=== PATIENT | female | born 1975 | race Caucasian/White ===

== ENCOUNTER 2020-10-03 00:26 | Day surgery (SDC) | payer OTHER, SELFPAY ==
[2020-09-24 09:34] VITALS: BMI 38.6
--- NOTE | 2020-10-01 07:06 | PM.HPGS ---
History of Present Illness History of Present Illness Consent: Risks, benefits, and alternatives have been discussed and questions answered. Patient agrees to proceed with procedure. Chief complaint: left chronic otitis media Narrative: Zohra Durand is a 45 year old female persistent left otitis unresponsive medical management Review of Systems Review of Systems: All systems reviewed & are unremarkable except as noted in HPI and below PMFSH Social History Social History Smoking status: Never smoker Alcohol intake: current Drinks per week: 2 Substance use: never Living arrangements: with family Meds Home Medications and Allergies Home Medications Medication Instructions Recorded Confirmed Type bupropion HCl 150 mg 24 hr tablet, 150 mg PO QAM 09/09/20 09/24/20 History extended release naltrexone 12.5 mg PO DAILY 09/24/20 09/24/20 History Allergies Allergy/AdvReac Type Severity Reaction Status Date / Time No Known Allergies Allergy Unknown Verified 09/24/20 09:30 Exam Narrative: Exam Narrative: chest clear heart without murmurs abdomen soft left tympanic membrane retracted with Assessment and Plan Additional Plan plan left myringotomy into
--- NOTE | 2020-10-02 10:03 | WPDANESEPPF ---
Anes - Initial Pre Proc Eval Procedure: Operation Date: 10/03/20 08:00 Proposed Procedures p Left Myringotomy,Insertion Of T-Tube - Gama Caldera MD Date/Time: 10/02/20 10:03 Surgeon: Gama Caldera MD Pre Op Diagnosis: left chronic otitis media Patient Data Age: 45 Gender: F Height: 1.63 m Weight: 102 kg Allergies Allergy/AdvReac Type Severity Reaction Status Date / Time No Known Allergies Allergy Unknown Verified 10/03/20 06:46 Home Medications Medication Instructions Recorded Confirmed Type bupropion HCl 150 mg 24 hr tablet, 150 mg PO QAM 09/09/20 10/03/20 History extended release naltrexone 12.5 mg PO DAILY 09/24/20 10/03/20 History Patient hx anesthesia problems: none Family hx anesthesia problems: none [facility] Social History Social History Smoking status: Never smoker Alcohol intake: current Drinks per week: 2 Alcohol use details: Occasionally Substance use: never Living arrangements: with family Anes - Eval Final PreProcedure Day of Procedure 10/02/20 10:03 Patient weight: obese Heart: regular rate and rhythm Lungs: clear to auscultation and normal air movement Airway: Mallampati scale class II Neurological: alert and oriented Last oral intake: >/= 8 hours ASA classification: II Emergent: no Anesthetic plan: proceed Anesthesia type and monitoring: general GIVS and standard monitoring Informed Consent: The patient's anesthetic plan and its attendant risks and benefits were discussed with the patient/family/POA. Questions were solicited and answers provided to the satisfaction of the patient/family/POA.
[2020-10-03] VITALS (7 sets, daily range): BP systolic 110–142; BP diastolic 69–94; PULSE 57–65; RESP 16–18; TEMP 35.8–36.1; O2SAT 96–100; BMI 37.8
--- NOTE | 2020-10-03 06:14 | WPDHPUPDATE1 ---
History and Physical Update Update Date/Time: 10/03/20 06:14 History and Physical has been reviewed, including an updated exam of the patient. There are NO changes in the patient's condition. Risks, benefits, and alternatives have been discussed and questions answered. Patient agrees to proceed with procedure.
[2020-10-03] MEDS: LACTATED RINGERS 1,000 ML 30 ML IV CONT (07:02)
--- NOTE | 2020-10-03 08:03 | W.PM.PROC2 ---
Procedure Note - Detailed Date of Procedure 10/03/20 Pre-op Diagnosis left chronic otitis media Post-op Diagnosis same Procedure Performed left myringotomy with insertion of T-tube Surgeon Gama Caldera MD Anesthesia general Indications left chronic otitis Description of Procedure patient was prepped and draped in usual fashion general anesthesia the left ear was inspected and anterosuperior incision was made and a long-lasting T-tube was inserted patient awakened returned to recovery in good condition Estimated Blood Loss 0 Complications No immediate complications Condition stable Disposition same day
[2020-10-03] MEDS: CIPROFLOXACIN HCL 0.3% OP SOLN 2.5 ML BTL 4 DROP LEFT EAR (08:27)
[2020-10-03] MEDS: ACETAMINOPHEN 325 MG TABLET 650 MG PO (09:11)
== END 2020-10-03 09:27 | disposition home or self-care (01) ==
PROVIDERS: PCP Family Medicine; Visit Provider Otolaryngology
PROC: (CPT 69436; principal; 2020-10-03 08:00)
DX: H66.92 Otitis media, unspecified, left ear (principal); E66.9 Obesity, unspecified; Z68.37 Body mass index [BMI] 37.0-37.9, adult
CPT/HCPCS: 69436; A9270; J2250; J3010; J7120

== ENCOUNTER 2021-07-04 10:29 | Outpatient (CLI) | payer OTHER, SELFPAY | END 2021-07-04 10:30 | disposition home or self-care (01) | LOC: ANHAUDIO 10:30 | PROVIDERS: PCP Family Medicine; Visit Provider Otolaryngology | DX: H66.93 Otitis media, unspecified, bilateral (principal); H90.11 Conductive hearing loss, unilateral, right ear, with unrestricted hearing on the contralateral side | CPT/HCPCS: 92557; 92567 ==

== ENCOUNTER 2021-07-15 00:11 | Day surgery (SDC) | payer OTHER, SELFPAY ==
[2021-07-08 13:38] VITALS: BMI 36.9
--- NOTE | 2021-07-08 13:40 | SUR.PREOP ---
Report to the Outpatient Waiting Room, entrance under the green pavilion located off [facility], at time _0630 on date 07/15/21 . OR Time: __0830. - You and your visitor will be asked a series of questions to screen for COVID 19 for your protection. - A mask is required within the hospital. Preoperative COVID Testing Requirements: No COVID Test needed if: (proof is required; if not received patient will have Rapid Test prior to entry) - Patient has received COVID Vaccine at least 14 days prior to procedure date or - Patient has positive COVID test result within last 90 days of surgery date. COVID Test needed if above criteria is not met If not COVID vaccinated a COVID test must be conducted within 72 hours of surgery and patient is asked to isolate self from time of testing until procedure. You will go to the [facility] for your COVID testing. The [facility] site is located at the corner of [address] [facility]. You will only be called if COVID results are positive and your surgeon may reschedule your elective surgery date. Patients may have clear liquids (water, carbonated beverages, clear teas, apple juice) until 3 hours prior to surgery with a maximum of 20 ounces. - No food from midnight until time of surgery - Infants may have breast milk until 4 hours before surgery, formula 6 hours prior to surgery. - Children will be allowed to drink immediately following surgery. If applicable, please bring a bottle or sippy cup to assist with drinking. Juice, water, soda, and popsicles are readily available. For infants on formula, please bring formula the day of surgery. Pacifiers are allowed. Take the following medications with a SIP of water the morning of surgery: n/a Medications to discontinue per physician _vitamin supplements Date to take last dose__07/12/21 Please no make-up, nail colombian, hairspray, perfume, deodorant, or body powder the day of surgery. No jewelry (including any body piercings) or valuables the day of surgery, leave them at home. Please take a shower or bath the night before, or the morning of, surgery with an antibacterial soap. Wear comfortable, loose fitting clothing. Children are encouraged to wear pajamas. - Jewelry must be removed prior to entering the operating room. Rings and piercings that are not removed may be cut off. - The hospital will not accept responsibility for valuables. - Please leave all valuables, including medications, at home the day of surgery. If you are going home after surgery, a licensed freight delivery driver must drive you home. - NO public transportation without another adult. - We recommend that an adult stay with you for 24 hours following discharge. - We also recommend that you do not drive, make important decision, drink alcoholic beverages, or take any drugs that were not prescribed by your health care provider for at least 24 hours after your discharge time. For Pediatric surgeries, we recommend two adults accompany the child home (only one inside the building at this time). One visitor will be allowed to accompany the patient into the hospital. Patients visitor will be instructed to remain with patient at all times or leave the building. We will allow the visitor to come back to the postoperative area when patient is ready. Follow any additional instructions given to you from your surgeon. Telephone instructions given to _reina burgos and asked if any additional questions and then verbalized understanding. Patient advised to call surgeon office or pre surgery nurse liaison [phone] if any additional questions.
--- NOTE | 2021-07-09 09:50 | PM.HPGS ---
History of Present Illness History of Present Illness Consent: Risks, benefits, and alternatives have been discussed and questions answered. Patient agrees to proceed with procedure. Chief complaint: Lt TM perforation Narrative: Zohra Durand is a 45 year old female and had tubes in the past she needs a left tympanoplasty placement of a tube at the same time [facility] Social History Social History Smoking status: Never smoker Alcohol intake: current Drinks per week: 2 Alcohol use details: Occasionally Substance use: never Spiritual care concerns: No Meds Home Medications and Allergies Home Medications Medication Instructions Recorded Confirmed Type ergocalciferol (vitamin D2) 1,000 unit PO DAILY 07/08/21 07/08/21 History [Vitamin D2] multivitamin 1 cap PO DAILY 07/08/21 07/08/21 History Allergies Allergy/AdvReac Type Severity Reaction Status Date / Time No Known Allergies Allergy Unknown Verified 07/08/21 13:24 Exam Narrative: chest clear heart murmurs abdomen soft extremities negative left TM retracted with perfect Assessment and Plan Additional Plan plan left tympanoplasty with a placement of the tube with the same time
[2021-07-15] VITALS (7 sets, daily range): BP systolic 110–132; BP diastolic 72–91; PULSE 56–71; RESP 13–19; TEMP 36.3–36.6; O2SAT 96–100
--- NOTE | 2021-07-15 06:16 | WPDHPUPDATE1 ---
History and Physical Update Update Date/Time: 07/15/21 06:16 History and Physical has been reviewed, including an updated exam of the patient. There are NO changes in the patient's condition. Risks, benefits, and alternatives have been discussed and questions answered. Patient agrees to proceed with procedure.
--- NOTE | 2021-07-15 07:22 | WPDANESEPPF ---
Anes - Initial Pre Proc Eval Procedure: Operation Date: 07/15/21 09:00 Proposed Procedures p Left Tympanoplasty - Gama Caldera MD s Left Myringotomy with Tube Insertion - Gama Caldera MD Date/Time: 07/15/21 07:22 Surgeon: Gama Caldera MD Pre Op Diagnosis: Lt TM perforation Patient Data Age: 45 Gender: F Height: 1.63 m Weight: 100 kg Allergies Allergy/AdvReac Type Severity Reaction Status Date / Time No Known Allergies Allergy Unknown Verified 07/15/21 07:10 Home Medications Medication Instructions Recorded Confirmed Type ergocalciferol (vitamin D2) 1,000 unit PO DAILY 07/08/21 07/15/21 History [Vitamin D2] multivitamin 1 cap PO DAILY 07/08/21 07/15/21 History Patient hx anesthesia problems: none Family hx anesthesia problems: none Results Review: All pre-operative results and documents have been reviewed as part of the pre-operative evaluation. [facility] Surgical History Surgical History (Updated 07/14/21 @ 15:38 by Chalino Slade DO) History of tubal ligation Social History Social History Smoking status: Never smoker Alcohol intake: current Drinks per week: 2 Alcohol use details: Occasionally Substance use: never Living arrangements: with family Spiritual care concerns: No Anes - Eval Final PreProcedure Day of Procedure 07/15/21 07:22 Patient weight: obese Heart: regular rate and rhythm Lungs: clear to auscultation and normal air movement Airway: Mallampati scale class II Neurological: alert and oriented Last oral intake: >/= 8 hours ASA classification: II Emergent: no Anesthetic plan: proceed Anesthesia type and monitoring: general LMA and standard monitoring Results Review: All pre-operative results and documents have been reviewed as part of the pre-operative evaluation. Informed Consent: The patient's anesthetic plan and its attendant risks and benefits were discussed with the patient/family/POA. Questions were solicited and answers provided to the satisfaction of the patient/family/POA.
[2021-07-15] MEDS: LACTATED RINGERS 1,000 ML 30 ML IV CONT (07:42)
[2021-07-15] MEDS: CIPROFLOXACIN HCL 0.3% OP SOLN 2.5 ML BTL 4 DROP LEFT EAR (09:07)
[2021-07-15] MEDS: LIDO 1%/EPINEPHRINE/PF 1:200,000 30 ML VIAL 5 ML XX (09:08)
--- NOTE | 2021-07-15 09:14 | W.PM.PROC2 ---
Procedure Note - Detailed Date of Procedure 07/15/21 Pre-op Diagnosis Lt TM perforation Post-op Diagnosis Same Procedure Performed Left myringotomy and placement of T-tube and fat tympanoplasty Surgeon Gama Caldera MD Description of Procedure Patient was prepped and draped in general anesthesia ear was inspected small central perforation with injected xylocaine with adrenaline an anterosuperior incision made T-Tube inserted was harvested and placed in a dumbbell fashion in the small perforation patient awakened returned to recovery in good condition
== END 2021-07-15 10:34 | disposition home or self-care (01) ==
PROVIDERS: Visit Provider Otolaryngology
PROC: (CPT 69620; principal; 2021-07-15 09:00)
PROC: (CPT 69620; 2021-07-15 09:00)
DX: H72.92 Unspecified perforation of tympanic membrane, left ear (principal); E66.9 Obesity, unspecified; Z68.37 Body mass index [BMI] 37.0-37.9, adult
CPT/HCPCS: 69620; A9270; J0171; J1100; J2250; J2405; J2704; J3010; J7120